=== PATIENT | female | born 2000 | race Caucasian/White ===

== ENCOUNTER 2019-05-15 14:57 | Inpatient (IN) | payer OTHER, MEDICAID ==
[~2019-05-15] VITALS: Ht 160 cm; Wt 95.7 kg
[2019-05-15] MEDS: LACTATED RINGERS 1,000 ML IV SCH (00:10)
[2019-05-15] MEDS ORDERED: OXYTOCIN 20 UNITS in LACTATED RINGERS 1,000 ML IV SCH (16:20)
[2019-05-15 16:39] VITALS: BP 111/79
[2019-05-15] MEDS ORDERED: PREN-380 PO (16:52)
[2019-05-15] MEDS ORDERED: CARB200T1 PO (16:52)
[2019-05-15 17:08] LABS: BASOPHILS % (AUTO) 0.3 % (0.0-2.0); EOSINOPHILS % (AUTO) 0.2 % (0.0-4.0); HEMATOCRIT 38.1 % (36-48); LYMPHOCYTES # (AUTO) 1.6 K/uL (2.5-16.5); LYMPHOCYTES % (AUTO) 20.8 % (20.5-51.1); MEAN CORPUSCULAR HEMOGLOBIN 34 pg (27-31); MEAN CORPUSCULAR HGB CONC 34 g/dL (33-37); MEAN CORPUSCULAR VOLUME 98.5 fL (80-94); MONOCYTES # (AUTO) 0.5 K/uL (0.8-1.0); MONOCYTES % (AUTO) 6.8 % (1.7-9.3); NEUTROPHILS # (AUTO) 5.4 K/uL (1.8-7.7); NEUTROPHILS % (AUTO) 71.9 % (42.2-75.2); PLATELET COUNT (AUTO) 237 K/uL (140-450); RED BLOOD CELL COUNT(AUTO) 3.86 MIL/uL (4.20-5.40); RED CELL DISTRIBUTION WIDTH 13.1 % (11.6-13.7); WHITE BLOOD COUNT (AUTO) 7.5 K/uL (4.8-10.8)
[2019-05-15 17:11] LABS: BILIRUBIN,URINE NEGATIVE (NEGATIVE); BLOOD, URINE NEGATIVE (NEGATIVE); COLOR,URINE YELLOW (YELLOW); LEUKOCYTE ESTERASE ,URINE TRACE (NEGATIVE); NITRITE, URINE NEGATIVE (NEGATIVE); PH,URINE 7.5 (5.0-9.0); UGLUCOSE NEGATIVE (NEGATIVE)
[2019-05-15 17:29] LABS: ALBUMIN 2.5 g/dL (3.4-5.0); ANION GAP 12.8 (8-16); CARBON DIOXIDE 25.1 mmol/L (21-32); CREATININE 0.7 mg/dL (0.6-1.3); POTASSIUM 3.9 mmol/L (3.5-5.1); TOTAL BILIRUBIN 0.2 mg/dL (0.0-1.0)
[2019-05-15 17:31] LABS: APPEARANCE,URINE CLOUDY (CLEAR)
[2019-05-15 17:35] LABS: RBC,URINE NONE SEEN /HPF (0-5); WBC,URINE 0-5 /HPF (0-5)
[2019-05-15] MEDS: MISOPROSTOL 25 MCG TAB VG PRN ×2 (17:55→22:01)
[2019-05-15] MEDS ORDERED: carBAMazepine 200 MG TAB ONE (20:57)
[2019-05-15] MEDS: carBAMazepine 200 MG TAB PO SCH (22:00)
[2019-05-16] MEDS ORDERED: TERBUTALINE 1 MG/ML VIAL SUBQ ONE (01:12)
[2019-05-16] MEDS ORDERED: TERBUTALINE 1 MG/ML VIAL SUBQ SCH (01:21)
[2019-05-16] MEDS: LACTATED RINGERS 1,000 ML IV SCH ×2 (05:34→11:34)
[2019-05-16] MEDS ORDERED: fentaNYL 0.05 MG/ML VIAL IVP PRN (07:15)
[2019-05-16] MEDS ORDERED: OXYTOCIN 20 UNITS/LR PREMIX 1,000 ML IV ONE (07:56)
--- NOTE | 2019-05-16 08:28 | NUR ---
PATIENT HAS BEEN SCREENED AND CATEGORIZED LOW NUTRITION RISK. PATIENT WILL BE SEEN WITHIN 7 DAYS OF ADMISSION. 05/22/[address]
[2019-05-16] MEDS ORDERED: ROPIVACAINE 0.2%/NS PREMIX 200 ML EPI ONE (09:05)
[2019-05-16] MEDS ORDERED: ACETAMINOPHEN 325 MG TAB PO PRN (09:40)
[2019-05-16] MEDS: carBAMazepine 200 MG TAB PO SCH ×2 (09:40→21:59)
[2019-05-16] MEDS ORDERED: LIDOCAINE 1% 500 MG/50 ML VIAL ONE (11:48)
[2019-05-16] MEDS ORDERED: TEMAZEPAM 15 MG CAP PO PRN (12:15)
[2019-05-16] MEDS ORDERED: SODIUM PHOSPHATE 118 ML ENEM RC PRN (12:15)
[2019-05-16] MEDS ORDERED: IBUPROFEN 800 MG TAB PO PRN (12:15)
[2019-05-16] MEDS ORDERED: HYDROcodone/APAP 5/325 MG 1 TAB TAB PO PRN (12:15)
[2019-05-16] MEDS ORDERED: OXYTOCIN 10 UNITS/ML VIAL IM PRN (12:15)
[2019-05-16] MEDS ORDERED: oxyCODONE/APAP 5/325 MG 1 TAB TAB PO PRN (12:15)
[2019-05-16] MEDS ORDERED: METHYLERGONOVINE 0.2 MG/ML AMP IM PRN (12:15)
[2019-05-16] MEDS ORDERED: BENZOCAINE/MENTHOL 20%-0.5% 60 GM CAN TP PRN (12:15)
[2019-05-16] MEDS ORDERED: DOCUSATE SOD/SENNA 50/8.6 MG 1 TAB PO SCH (21:00)
[2019-05-17 05:57] LABS: HEMATOCRIT 34.9 % (36-48); HEMOGLOBIN 11.9 g/dL (12.0-16.0)
[2019-05-17] MEDS: carBAMazepine 200 MG TAB PO SCH ×2 (09:26→21:30)
[2019-05-18 08:15] LABS: RAPID PLASMA REAGIN NON-REACTIVE (Non Reactiv)
[2019-05-18] MEDS: carBAMazepine 200 MG TAB PO SCH (09:52)
== END 2019-05-18 12:10 | disposition home or self-care (01) | DRG 806 ==
LOC: MFCC 14:57 → OBSVTOIN 14:57 → MLD 20:15 → MFCC 05-16 18:00
PROVIDERS: ADMIT Obstetrics & Gynecology; ATTEND Obstetrics & Gynecology
PROC: 10D07Z6 Extraction of Products of Conception, Vacuum, Via Natural or Artificial Opening (ICD-10-PCS; principal; 2019-05-16)
PROC: 0HQ9XZZ Repair Perineum Skin, External Approach (ICD-10-PCS; 2019-05-16)
PROC: 3E0R3BZ Introduction of Anesthetic Agent into Spinal Canal, Percutaneous Approach (ICD-10-PCS; 2019-05-16)
PROC: 00HU33Z Insertion of Infusion Device into Spinal Canal, Percutaneous Approach (ICD-10-PCS; 2019-05-16)
PROC: 3E033VJ Introduction of Other Hormone into Peripheral Vein, Percutaneous Approach (ICD-10-PCS; 2019-05-16)
PROC: 3E0P7VZ Introduction of Hormone into Female Reproductive, Via Natural or Artificial Opening (ICD-10-PCS; 2019-05-16)
DX: O69.1XX0 Labor and delivery complicated by cord around neck, with compression, not applicable or unspecified (principal); O99.354 Diseases of the nervous system complicating childbirth; Z37.0 Single live birth; R71.0 Precipitous drop in hematocrit; G40.909 Epilepsy, unspecified, not intractable, without status epilepticus; O66.5 Attempted application of vacuum extractor and forceps; Z3A.39 39 weeks gestation of pregnancy; O70.0 First degree perineal laceration during delivery
CPT/HCPCS: 36415; 80053; 81001; 85018; 85025; 86592; 86886; 86900; 86901; J2001; J2590; J2795; J3010; J3105; J7120